=== PATIENT | female | born 1935 | race Caucasian/White ===

== ENCOUNTER 2018-02-03 13:05 | Day surgery (SDC) | payer MEDICARE, BC ==
[~2018-02-03 13:05] MED LIST: ACETAZOLAMIDE 250 MG PO ONE; MIDAZOLAM 2 MG/2 ML SOL ONE
[2018-02-03] MEDS: CYCLOPENTOLATE 1% SOL ONE ×3 (13:26→13:36)
[2018-02-03] MEDS: PHENYLEPHRINE HCL 10% OPHTHAL SOL ONE ×3 (13:26→13:36)
[2018-02-03] MEDS: TROPICAMIDE 1% OPHTH SOL ONE ×3 (13:27→13:37)
[2018-02-03] MEDS ORDERED: KETOROLAC/HOME 0.5% SOL RIGHTEYE ONE ×3 (13:27→13:37)
[2018-02-03] MEDS ORDERED: MOXIFLOXACIN-HOME SOL RIGHTEYE ONE ×2 (13:28→13:31)
[2018-02-03] MEDS: TETRACAINE HCL 0.5 % 1 DROP SOL ONE ×2 (13:37→14:13)
[2018-02-03] MEDS ORDERED: BSS W/ 0.5 MG P.F. EPI 1 BOTTLE ONE (14:07)
[2018-02-03] MEDS ORDERED: LIDOCAINE HCL 2% MPF 10 ML SOL ONE (14:07)
[2018-02-03] MEDS: POVIDONE IODINE 5% SOL ONE ×2 (14:14→14:16)
[2018-02-03] MEDS ORDERED: ACETAZOLAMIDE 250 MG PO ONE (14:15)
[2018-02-03 14:36] VITALS: O2SAT 94
== END 2018-02-03 15:06 | disposition home or self-care (01) | DRG 125 ==
LOC: SURG 13:05
PROVIDERS: ATTEND Ophthalmology
DX: H25.89 Other age-related cataract (principal); E11.9 Type 2 diabetes mellitus without complications
CPT/HCPCS: J2250; A9270-GY

== ENCOUNTER 2018-02-24 11:07 | Day surgery (SDC) | payer MEDICARE, BC ==
[2018-02-24] MEDS ORDERED: MIDAZOLAM 2 MG/2 ML SOL ONE (11:25)
[2018-02-24] MEDS: PHENYLEPHRINE HCL 10% OPHTHAL SOL ONE ×3 (11:28→11:39)
[2018-02-24] MEDS: CYCLOPENTOLATE 1% SOL ONE ×3 (11:28→11:39)
[2018-02-24] MEDS: TROPICAMIDE 1% OPHTH SOL ONE ×3 (11:28→11:40)
[2018-02-24] MEDS ORDERED: KETOROLAC/HOME 0.5% SOL LEFTEYE ONE ×3 (11:29→11:41)
[2018-02-24] MEDS ORDERED: MOXIFLOXACIN-HOME SOL LEFTEYE ONE ×2 (11:31→11:36)
[2018-02-24] MEDS ORDERED: BSS W/ 0.5 MG P.F. EPI 1 BOTTLE ONE (11:36)
[2018-02-24] MEDS ORDERED: POVIDONE IODINE 5% SOL ONE (11:39)
[2018-02-24] MEDS: TETRACAINE HCL 0.5 % 1 DROP SOL ONE ×2 (11:41→12:02)
[2018-02-24] MEDS: LIDOCAINE HCL 2% MPF 10 ML SOL ONE ×2 (12:02→12:08)
[2018-02-24] MEDS ORDERED: ACETAZOLAMIDE 250 MG PO ONE ×2 (12:05→12:40)
[2018-02-24 12:29] VITALS: O2SAT 94
== END 2018-02-24 12:55 | disposition home or self-care (01) | DRG 125 ==
LOC: SURG 11:07
PROVIDERS: ATTEND Ophthalmology
DX: H25.89 Other age-related cataract (principal); E11.9 Type 2 diabetes mellitus without complications
CPT/HCPCS: J2250; A9270-GY